=== PATIENT | female | born 1990 | race Caucasian/White ===

== ENCOUNTER → 2020-02-22 12:55 | Observation (INO) ==
[2020-02-22 11:42] LABS: Protein/Creatinine Ratio,Urine 0.15 mg/mg (0.00-0.20)
[2020-02-22 13:05] LABS: Bacteria,Urine Few per hpf (None-Few); Bilirubin,Urine Negative (Negative); Blood,Urine Small (Negative); Calcium Oxalate Crystals,Urine Present; Clarity,Urine Clear (Clear); Color,Urine Yellow (Yellow); Glucose,Urine (UA) Normal (Normal); Ketones,Urine 10 mg/dL (Negative); Leukocyte Esterase,Urine Negative (Negative); Mucus,Urine Moderate per lpf (None-Few); Nitrite,Urine Negative (Negative); Protein,Urine 50 mg/dL (Neg-Trace); RBC,Urine 50-100 per hpf (0-3); Renal Epithelial Cells,Urine Few per hpf (None-Few); Specific Gravity,Urine > 1.030 (1.010-1.025); Squamous Epithelial Cell,Urine Few per hpf (None-Few); Transitional Epi Cells,Urine Few per hpf (None-Few); Urobilinogen,Urine Normal (Normal)
[2020-02-22 13:26] LABS: Alanine Aminotransferase 13 Units/L (7-52); Aspartate Amino Transferase 19 Units/L (13-39); BUN/Creatinine Ratio 13 (6-26); Blood Urea Nitrogen 8 mg/dL (6-20); Lactate Dehydrogenase 142 Units/L (140-271); Uric Acid 4.2 mg/dL (2.3-7.6); eGFR For African Americans > 60 (> 60); eGFR For Non-African Americans > 60 (> 60)
== END | disposition home or self-care (01) ==
LOC: 1NENULAB
PROVIDERS: ADMIT Obstetrics & Gynecology; ATTEND Obstetrics & Gynecology

== ENCOUNTER 2020-04-13 05:48 | Inpatient (IN) ==
[2020-04-13] MEDS ORDERED: *HR* Nalbuphine 10 MG/ML AMPUL IV PRN (06:11)
[2020-04-13] MEDS ORDERED: Azithromycin 500 MG in 0.9 % Sodium Chloride 250 ML IVPB ONE (06:11)
[2020-04-13] MEDS ORDERED: Famotidine 20 MG/2 ML VIAL IVP PRN (06:11)
[2020-04-13] MEDS ORDERED: Metoclopramide 10 MG/2 ML VIAL IVP PRN (06:11)
[2020-04-13] MEDS ORDERED: Naloxone 0.4 MG/ML INJ IVP PRN (06:11)
[2020-04-13] MEDS ORDERED: Ringers Solution, Lactated 1,000 ML IVC SCH (06:15)
[2020-04-13] MEDS ORDERED: miSOPROStoL 25 MCG TABLET PO PRN (06:18)
[2020-04-13] MEDS ORDERED: Oxytocin 20 units/ LR 1000 mL 20 UNIT/1,000 ML BAG IVC SCH ×2 (06:30→23:16)
[2020-04-13 07:15] LABS: Basophils % 0.3 %; Eosinophils # 0.1 K/mcL (0.0-0.6); Eosinophils % 0.6 %; Hematocrit 34.2 % (35.3-44.9); Hemoglobin 11.8 g/dL (11.5-15.4); Immature Granulocytes % 0.5 % (0-4); Lymphocytes # 2.5 K/mcL (0.6-4.6); Lymphocytes % 27.7 %; Mean Corpuscular HGB Conc 34.5 g/dL (31.6-35.5); Mean Corpuscular Hemoglobin 30.3 pg (28.0-33.3); Mean Corpuscular Volume 87.9 fL (83.0-100.0); Mean Platelet Volume 12.8 fL (9.4-12.4); Monocytes # 0.5 K/mcL (0.0-1.3); Monocytes % 5.5 %; Neutrophils # 5.8 K/mcL (1.6-8.9); Platelet Count 162 K/mcL (140-400); Red Blood Count 3.89 M/mcL (3.82-4.97); Red Cell Distribution Width 12.4 % (11.5-14.5); Segmented Neutrophils % 65.4 %; White Blood Count 8.9 K/mcL (4.3-11.1)
[2020-04-13] MEDS ORDERED: EPHEDrine 50 MG/ML VIAL IVP PRN (08:16)
[2020-04-13] MEDS ORDERED: Epidural Premix (fent/bupiv) 110 ML EP SCH (08:30)
[2020-04-13] MEDS ORDERED: *HR* FentaNYL (PF) 100 MCG/2 ML VIAL ONE (09:56)
[2020-04-13] MEDS ORDERED: Ropivacaine/PF 0.2% 20 ML VIAL ONE (09:56)
[2020-04-13 10:36] LABS: Amphetamine Screen,Urine Negative ng/mL (Cutoff=1000); Barbiturate Screen,Urine Negative ng/mL (Cutoff=200); Benzodiazepines Screen,Urine Negative ng/mL (Cutoff=200); Cannabinoid Screen,Urine Negative ng/mL (Cutoff = 50); Cocaine Screen,Urine Negative ng/mL (Cutoff= 300); Opiate Screen,Urine Negative ng/mL (Cutoff=300); Phencyclidine Screen,Urine Negative ng/mL (Cutoff=25)
[2020-04-13] MEDS ORDERED: Ondansetron 4 MG/2 ML VIAL IVP ONE (23:05)
[2020-04-13] MEDS ORDERED: Ondansetron 4 MG/2 ML VIAL ONE (23:05)
[2020-04-13] MEDS ORDERED: Measles/Mumps/Rubella Vacc 0.5 ML VIAL SQ PRN (23:16)
[2020-04-13] MEDS ORDERED: Lanolin 7 G OINT...G. TP PRN (23:16)
[2020-04-13] MEDS ORDERED: Sennosides 8.6 MG TABLET PO PRN (23:16)
[2020-04-13] MEDS ORDERED: Oxytocin 20 units/ LR 1000 mL 20 UNIT/1,000 ML BAG IVC ONE (23:16)
[2020-04-13] MEDS ORDERED: Rho Immune Globulin 1,500 UNIT SYRINGE IM PRN (23:16)
[2020-04-13] MEDS ORDERED: Benzocaine/Menthol 56 GM AEROSOL SPRAY TP PRN (23:16)
[2020-04-13] MEDS: Ibuprofen 600 MG TABLET PO PRN (23:35)
[2020-04-13] MEDS: Acetaminophen 325 MG TABLET PO PRN (23:50)
[2020-04-14] MEDS: Ibuprofen 600 MG TABLET PO PRN ×3 (05:31→18:07)
[2020-04-14] MEDS: Acetaminophen 325 MG TABLET PO PRN ×3 (06:22→20:07)
[2020-04-14 06:26] LABS: Basophils % 0.3 %; Eosinophils % 0.1 %; Hematocrit 27.2 % (35.3-44.9); Immature Granulocytes % 0.5 % (0-4); Lymphocytes # 1.8 K/mcL (0.6-4.6); Mean Corpuscular HGB Conc 33.8 g/dL (31.6-35.5); Mean Corpuscular Hemoglobin 29.7 pg (28.0-33.3); Mean Corpuscular Volume 87.7 fL (83.0-100.0); Mean Platelet Volume 12.6 fL (9.4-12.4); Monocytes # 0.5 K/mcL (0.0-1.3); Monocytes % 4.4 %; Neutrophils # 9.5 K/mcL (1.6-8.9); Platelet Count 132 K/mcL (140-400); Red Cell Distribution Width 12.2 % (11.5-14.5); Segmented Neutrophils % 79.7 %
[2020-04-14 06:29] LABS: Hemoglobin 9.2 g/dL (11.5-15.4)
[2020-04-14] MEDS: Prenatal Vit/FA 1 EACH TABLET PO SCH (07:44)
[2020-04-14] MEDS ORDERED: NON-FORMULARY MEDICATION 1 EACH EACH (Pnv No.95/Ferrous Fum/Folic Ac [Prenatal Caplet] 1 T PO SCH (09:00)
[2020-04-14] MEDS ORDERED: Methylergonovine 0.2 MG/ML AMPUL IM ONE (16:26)
[2020-04-15] MEDS: Ibuprofen 600 MG TABLET PO PRN ×2 (00:06→08:11)
[2020-04-15] MEDS: Acetaminophen 325 MG TABLET PO PRN (05:21)
[2020-04-15] MEDS: Prenatal Vit/FA 1 EACH TABLET PO SCH (08:11)
[2020-04-15 09:08] VITALS: BP 119/76
== END 2020-04-15 13:05 | disposition home or self-care (01) | DRG 560 ==
LOC: 1NENULAB 05:48 → 1NENUOBS 04-14 01:37
PROVIDERS: ADMIT Student in an Organized Health Care Education/Training Program; ATTEND Student in an Organized Health Care Education/Training Program

== ENCOUNTER → 2021-02-28 16:08 | Observation (INO) ==
[~2021-02-28 16:08] MED LIST: *HR* Nalbuphine 10 MG/ML AMPUL IV PRN; Famotidine 20 MG/2 ML VIAL IVP PRN; Metoclopramide 10 MG/2 ML VIAL IVP PRN; Naloxone 0.4 MG/ML INJ IVP PRN; Ringers Solution, Lactated 1,000 ML IVC SCH
== END | disposition home or self-care (01) ==
LOC: 1NENULAB
PROVIDERS: ADMIT Registered Nurse; ATTEND Registered Nurse

== ENCOUNTER 2021-03-11 09:48 | Inpatient (IN) ==
[2021-03-11] MEDS ORDERED: Famotidine 20 MG/2 ML VIAL IVP PRN (10:33)
[2021-03-11] MEDS ORDERED: Naloxone 0.4 MG/ML INJ IVP PRN (10:33)
[2021-03-11] MEDS ORDERED: Ondansetron 4 MG/2 ML VIAL IVP PRN (10:33)
[2021-03-11] MEDS ORDERED: Metoclopramide 10 MG/2 ML VIAL IVP PRN (10:33)
[2021-03-11] MEDS ORDERED: Ringers Solution, Lactated 1,000 ML IVC SCH (10:45)
[2021-03-11] MEDS ORDERED: Oxytocin 20 units/ LR 1000 mL 20 UNIT/1,000 ML BAG IVC SCH ×2 (10:45→20:21)
[2021-03-11 11:23] LABS: Basophils % 0.4 %; Eosinophils % 0.1 %; Hematocrit 34.3 % (35.3-44.9); Hemoglobin 11.2 g/dL (11.5-15.4); Immature Granulocytes % 0.4 % (0-4); Lymphocytes # 2.1 K/mcL (0.6-4.6); Lymphocytes % 26.1 %; Mean Corpuscular HGB Conc 32.7 g/dL (31.6-35.5); Mean Corpuscular Volume 85.8 fL (83.0-100.0); Mean Platelet Volume 11.3 fL (9.4-12.4); Monocytes # 0.4 K/mcL (0.0-1.3); Monocytes % 4.9 %; Neutrophils # 5.5 K/mcL (1.6-8.9); Platelet Count 204 K/mcL (140-400); Red Cell Distribution Width 12.9 % (11.5-14.5); Segmented Neutrophils % 68.1 %
[2021-03-11 11:29] LABS: Amphetamine Screen,Urine Negative ng/mL (Cutoff=1000); Barbiturate Screen,Urine Negative ng/mL (Cutoff=200); Benzodiazepines Screen,Urine Negative ng/mL (Cutoff=200); Cannabinoid Screen,Urine Negative ng/mL (Cutoff = 50); Cocaine Screen,Urine Negative ng/mL (Cutoff= 300); Opiate Screen,Urine Negative ng/mL (Cutoff=300); Phencyclidine Screen,Urine Negative ng/mL (Cutoff=25)
[2021-03-11] MEDS ORDERED: Ropivacaine/PF 0.2% 20 ML VIAL EP ONE (11:41)
[2021-03-11] MEDS ORDERED: *HR* FentaNYL (PF) 100 MCG/2 ML VIAL EP ONE (11:41)
[2021-03-11] MEDS ORDERED: EPHEDrine 50 MG/ML VIAL IVP PRN (11:41)
[2021-03-11] MEDS ORDERED: Epidural Premix (fent/bupiv) 110 ML EP ONE (11:44)
[2021-03-11] MEDS ORDERED: Epidural Premix (fent/bupiv) 110 ML EP SCH (11:45)
[2021-03-11 11:53] LABS: Influenza A PCR Negative (Negative); Influenza B PCR Negative (Negative); Resp. Syncytial Virus PCR Negative (Negative)
[2021-03-11 11:54] LABS: SARS-CoV-2 by PCR (In House) Positive (Negative)
[2021-03-11] MEDS ORDERED: *HR* FentaNYL (PF) 100 MCG/2 ML VIAL ONE (17:24)
[2021-03-11] MEDS ORDERED: Ropivacaine/PF 0.2% 20 ML VIAL ONE (17:24)
[2021-03-11] MEDS ORDERED: Measles/Mumps/Rubella Vacc 0.5 ML VIAL SQ PRN (20:21)
[2021-03-11] MEDS ORDERED: Ondansetron ODT 4 MG TAB.RAPDIS SL PRN (20:21)
[2021-03-11] MEDS ORDERED: Lanolin 7 G OINT...G. TP PRN (20:21)
[2021-03-11] MEDS ORDERED: Benzocaine/Menthol 56 GM AEROSOL SPRAY TP PRN (20:21)
[2021-03-11] MEDS: Ibuprofen 600 MG TABLET PO SCH (21:10)
[2021-03-11] MEDS: Acetaminophen 325 MG TABLET PO SCH (21:10)
[2021-03-12] MEDS: Acetaminophen 325 MG TABLET PO SCH ×2 (04:41→10:59)
[2021-03-12] MEDS: Ibuprofen 600 MG TABLET PO SCH ×2 (04:41→11:00)
[2021-03-12 05:51] VITALS: O2SAT 99
[2021-03-12 05:54] LABS: Basophils % 0.4 %; Eosinophils % 0.3 %; Immature Granulocytes % 0.4 % (0-4); Lymphocytes # 2.8 K/mcL (0.6-4.6); Lymphocytes % 30.9 %; Mean Corpuscular HGB Conc 33.3 g/dL (31.6-35.5); Mean Corpuscular Hemoglobin 28.4 pg (28.0-33.3); Mean Corpuscular Volume 85.3 fL (83.0-100.0); Mean Platelet Volume 10.7 fL (9.4-12.4); Monocytes # 0.4 K/mcL (0.0-1.3); Monocytes % 4.7 %; Neutrophils # 5.8 K/mcL (1.6-8.9); Platelet Count 216 K/mcL (140-400); Red Blood Count 3.87 M/mcL (3.82-4.97); Segmented Neutrophils % 63.3 %; White Blood Count 9.1 K/mcL (4.3-11.1)
[2021-03-12 07:21] VITALS: BP 109/71; TEMP 97.3
[2021-03-12] MEDS ORDERED: Prenatal Vit/FA 1 EACH TABLET PO SCH (09:00)
[2021-03-12 15:12] VITALS: PULSE 64
== END 2021-03-12 18:47 | disposition home or self-care (01) | DRG 560 ==
LOC: 1NENULAB 09:48 → 1NENUOBS 20:20
PROVIDERS: ADMIT Obstetrics & Gynecology; ATTEND Obstetrics & Gynecology